=== PATIENT | female | born 2005 | race African-American/Black ===

== ENCOUNTER 2025-04-12 06:56 | Emergency (ER) | payer SELFPAY ==
[2025-04-12] MEDS: Ketorolac 60 MG/2 ML SDV IM ONE (07:42)
== END 2025-04-12 08:34 | disposition home or self-care (01) ==
LOC: JD.ED 06:56
DX: M54.50 Low back pain, unspecified (principal)
CPT/HCPCS: 96372; 99283; A9270; J1885